=== PATIENT | male | born 1960 | race Caucasian/White ===

== ENCOUNTER 2023-04-29 10:54 | Emergency (ER) | payer BC ==
[~2023-04-29] VITALS: Ht 175.3 cm; Wt 81.6 kg
[2023-04-29 11:43] LABS: APPEARANCE,URINE CLEAR (CLEAR); BILIRUBIN,URINE NEGATIVE (NEGATIVE); BLOOD, URINE NEGATIVE Ery/uL (NEGATIVE); COLOR,URINE YELLOW (YELLOW); KETONES,URINE NEGATIVE (NEGATIVE); LEUKOCYTE ESTERASE ,URINE NEGATIVE (NEGATIVE); NITRITE, URINE NEGATIVE (NEGATIVE); PH,URINE 5.5 (5.0-8.0); PROTEIN,URINE NEGATIVE (NEGATIVE); UGLUCOSE NEGATIVE (NEGATIVE); UROBILINOGEN,URINE 0.2 EU/dL (0.2)
[2023-04-29] MEDS ORDERED: PHEN-704 PO (12:17)
[2023-04-29 12:59] VITALS: BP 121/81; TEMP 98.1; O2SAT 97
== END 2023-04-29 12:28 | disposition home or self-care (01) ==
LOC: ER 11:00
DX: R30.0 Dysuria (principal)